=== PATIENT | male | born 1975 | race Two or more races ===

== ENCOUNTER 2021-10-31 17:19 | Emergency (ER) | payer OTHER ==
[~2021-10-31] VITALS: Ht 172.7 cm; Wt 74.4 kg
[2021-10-31 17:34] VITALS: BP 116/84
--- NOTE | 2021-10-31 18:01 | NUR ---
COVID SWAB DONE AND SENT TO LAB
--- NOTE | 2021-10-31 18:40 | NUR ---
Patient discharged to [id number] in stable condition. Written and verbal after care instructions given. Patient verbalizes understanding of instruction.
== END 2021-10-31 18:42 ==
LOC: ER 17:22
DX: J04.0 Acute laryngitis (principal); Z20.822 Contact with and (suspected) exposure to COVID-19; E03.9 Hypothyroidism, unspecified; Z79.890 Hormone replacement therapy
CPT/HCPCS: 87426; 99283; C9803